=== PATIENT | female | born 1985 ===

== ENCOUNTER 2016-12-07 19:30 | Emergency (ER) | payer MEDICAID ==
[2016-12-07 19:30] VITALS: BMI 20.4
[2016-12-07 19:43] VITALS: BP 131/71; PULSE 68; RESP 16; TEMP 97.1; O2SAT 100
[2016-12-07] MEDS ORDERED: DiphenhydrAMINE 50 mg/ml Inj IVP STA (19:53)
[2016-12-07] MEDS ORDERED: Sodium Chloride 0.9% 1,000 ML IV STA (19:54)
--- NOTE | 2016-12-07 20:02 | ED PDOC ---
HPI: General Adult Time Seen by Provider: 12/07/16 19:48 Chief Complaint (Nursing): ENT Problem Chief Complaint (Provider): Bleeding gums and mouth pain History Per: Patient History/Exam Limitations: no limitations Onset/Duration Of Symptoms: Days (x 1) Current Symptoms Are (Timing): Still Present Additional Complaint(s): Rhiannon is a 31 y/o female who presents to the ED complaining of bleeding gums and mouth pain extending down her chest, since waking up this morning. States she [place] a water park yesterday and ate chicken fingers with fried rice. This morning she noticed bleeding gums and pain of the inside of both cheeks, associated with difficulty swallowing. Patient is unaware of any allergies she may have. PMD: None Past Medical History Reviewed: Historical Data, Nursing Documentation, Vital Signs Vital Signs: Last Vital Signs Temp 97.1 F L 12/07/16 19:39 Pulse 68 12/07/16 19:39 Resp 16 12/07/16 19:39 BP 131/71 12/07/16 19:39 Pulse Ox 100 12/07/16 23:26 - Medical History PMH: No Chronic Diseases - Family History Family History: States: Unknown Family Hx - Immunization History Hx Tetanus Toxoid Vaccination: No Hx Influenza Vaccination: No Hx Pneumococcal Vaccination: No - Home Medications Home Medications: Ambulatory Orders Medication Instructions Recorded Multi Vitamins 04/17/13 [id number] [ Rx] 1 tab PO DAILY #30 tab 04/17/13 oxyCODONE/Acetaminophen [Percocet 1 ea PO Q6H PRN #15 tab 02/22/16 5/325 mg Tab] DiphenhydrAMINE [Benadryl] 50 mg PO Q8 PRN #20 cap 12/07/16 Famotidine [Pepcid] 20 mg PO BID #10 tab 12/07/16 predniSONE [predniSONE Tab] 3 tab PO DAILY #12 tab 12/07/16 - Allergies Allergies/Adverse Reactions: Allergies Allergy/AdvReac Type Severity Reaction Status Date / Time No Known Allergies Allergy Unverified 04/17/13 08:02 Review of Systems ROS Statement: Except As Marked, All Systems Reviewed And Found Negative ENT: Positive for: Mouth Pain, Other (Gums bleeding, difficulty swallowing) Physical Exam - Reviewed Nursing Documentation Reviewed: Yes Vital Signs Reviewed: Yes - Physical Exam Appears: Positive for: Non-toxic, No Acute Distress Head Exam: Positive for: ATRAUMATIC, NORMAL INSPECTION, NORMOCEPHALIC Skin: Positive for: Normal Color, Warm, Dry Eye Exam: Positive for: EOMI, Normal appearance, PERRL ENT: Positive for: Other (Right buccal membrane with ecchymosis and left lateral side of mouth white excoriations noted.). Negative for: Normal ENT Inspection Neck: Positive for: Normal, Painless ROM Cardiovascular/Chest: Positive for: Other (Nonspecific erythema noted at chest wall.) Neurologic/Psych: Positive for: Alert, Oriented - Laboratory Results Result Diagrams: 12/07/16 21:15 12/07/16 20:43 - ECG O2 Sat by Pulse Oximetry: 100 (RA) Pulse Ox Interpretation: Normal - Progress ED Course And Treament: PATIENT RE-EVALUATED AND NOTED TO HAVE IMPROVEMENT WITH SYMPTOMS. Medical Decision Making Medical Decision Making: Time: 19:51 Plan: --Labs ordered --Started patient on IV fluids, Benadryl, Pepcid, and Solu-medrol --Pending reevaluation Scribe Attestation: Documented by Kelsea Go, acting as a scribe for Paul López PA-C Provider Scribe Attestation: All medical record entries made by the Scribe were at my direction and personally dictated by me. I have reviewed the chart and agree that the record accurately reflects my personal performance of the history, physical exam, medical decision making, and the department course for this patient. I have also personally directed, reviewed, and agree with the discharge instructions and disposition. Disposition - Clinical Impression Clinical Impression: Allergic reaction - Patient ED Disposition Is Patient to be Admitted: No - Disposition Referrals: Papi Bajwa MD [Staff Provider] - Disposition: Routine/Home Disposition Time: 23:23 Condition: FAIR Prescriptions: DiphenhydrAMINE [Benadryl] 50 mg PO Q8 PRN #20 cap PRN Reason: Itching / Pruritus Famotidine [Pepcid] 20 mg PO BID #10 tab predniSONE [predniSONE Tab] 3 tab PO DAILY #12 tab Instructions: General Allergic Reaction (ED) Forms: [employer] [facility] ([place]ux[place]ish), [facility] ED School/Work Excuse Print Language: MONGOLIAN
[2016-12-07] MEDS ORDERED: DiphenhydrAMINE 50 mg/ml Inj ONE (20:44)
[2016-12-07 21:05] LABS: ALB/GLOB RATIO 1.5 (1.0-2.1); ALKALINE PHOSPHATASE 55 U/L (38-126); ALT/SGPT 30 U/L (9-52); AST/SGOT 21 U/L (14-36); BILIRUBIN,TOTAL 0.5 mg/dl (0.2-1.3); BLOOD UREA NITROGEN 9 mg/dl (7-17); CALCIUM 9.4 mg/dL (8.4-10.2); CARBON DIOXIDE 25 mmol/L (22-30); CHLORIDE 102 mmol/L (98-107); GFR AFRICAN-AMERICAN > 60; GLUCOSE,RANDOM 100 mg/dL (65-105); POTASSIUM 3.8 MMOL/L (3.6-5.0); SODIUM 138 mmol/l (132-148); TOTAL PROTEIN 7.4 G/DL (6.3-8.2)
[2016-12-07 21:46] LABS: PARTIAL THROMBOPLASTIN TIME 29.9 Seconds (25.6-37.1)
[2016-12-07 21:49] LABS: BASO % 0.6 % (0.0-2.0); EOS # 0.2 K/uL (0.0-0.7); EOS % 2.9 % (0.0-4.0); HEMATOCRIT 35.7 % (34.0-47.0); MEAN CELL VOLUME 86.1 fl (81.0-99.0); MEAN CORPUSCULAR HEMOGLOBIN 28.8 pg (27.0-31.0); MEAN CORPUSCULAR HGB CONC 33.5 g/dL (33.0-37.0); MEAN PLATELET VOLUME 8.6 fl (7.2-11.7); MONO # 0.6 K/uL (0.0-0.8); MONO % 8.1 % (0.0-10.0); NEUT # 4.7 K/uL (1.8-7.0); NEUT % 62.4 % (50.0-75.0); RED CELL DISTRIBUTION WIDTH 13.6 % (11.5-14.5); WHITE BLOOD COUNT 7.6 K/uL (4.8-10.8)
== END 2016-12-07 23:38 | disposition home or self-care (01) ==
LOC: H.ER 19:30
DX: T78.40XA Allergy, unspecified, initial encounter (principal); K06.8 Other specified disorders of gingiva and edentulous alveolar ridge
CPT/HCPCS: 80053; 81025; 85025; 85610; 85730; 96361; 96374; 96375; 99282; J1200; J2930; J7040